=== PATIENT | female | born 1945 | race Caucasian/White ===

== ENCOUNTER → 2017-02-22 | Outpatient (CLI) | payer OTHER ==
--- NOTE | 2017-02-22 16:59 | Diagnostic Imaging Report ---
Indications: Altered mental status, seizures Technique: Sagittal and axial T1 weighted FLAIR, coronal and axial T2-weighted FLAIR, coronal fast spoiled gradient cohen, axial T2-weighted fat saturated fast spin echo propeller, T2*-weighted gradient echo, and diffusion sequences of the brain were performed without IV gadolinium administration. Findings: Comparison: None Motion artifact degrades all images. Confluent T2 signal hyperintensity bilateral cerebral periventricular white matter. Multiple foci of similar signal change scattered throughout bilateral cerebral deep and subcortical white matter. Ventricles, cisterns, sulci are diffusely prominent. No evidence of mass or hemorrhage, other signal abnormality, mass effect, midline shift, hydrocephalus, or increased intracranial pressure. No restricted diffusion. Central vascular flow voids are preserved. IMPRESSION: No evidence of acute intracranial pathology No other evidence of focal pathology to suggest etiology for seizures. Lack of postgadolinium imaging limits evaluation, however. 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
== END | disposition home or self-care (01) ==
LOC: MRI 16:00
DX: R41.82 Altered mental status, unspecified (principal); G40.909 Epilepsy, unspecified, not intractable, without status epilepticus
CPT/HCPCS: 70551